=== PATIENT | female | born 1960 | race Caucasian/White ===

== ENCOUNTER → 2019-04-21 | Outpatient (CLI) | payer BC | LOC: COL.RAD 09:54 | DX: R10.9 Unspecified abdominal pain (principal) | CPT/HCPCS: Q9967 ==

== ENCOUNTER 2020-08-09 12:48 | Emergency (ER) | payer BC ==
[~2020-08-09] VITALS: Ht 172.7 cm; Wt 81.8 kg
[2020-08-09 13:12] VITALS: TEMP 98
[2020-08-09] MEDS ORDERED: PRINIVIL40 MG PO (13:37)
[2020-08-09] MEDS ORDERED: AMBIEN 10MG10 MG PO (13:38)
[2020-08-09] MEDS ORDERED: PREMARIN 1.251.25 MG PO (13:38)
[2020-08-09] MEDS ORDERED: ADDERALL20 MG PO (13:38)
[2020-08-09] MEDS ORDERED: LINZESS72 MCG PO (13:39)
[2020-08-09] MEDS ORDERED: MIRALAX510G PO (13:40)
[2020-08-09 13:54] LABS: BASO % 0.4 % (0.0-2.0); EOS # 0.1 (0.0-0.7); EOS % 0.9 % (0-4.0); GRAN # 4.5 (1.4-6.5); GRAN % 56.5 % (42.2-75.2); HEMATOCRIT 37.9 % (37.0-47.0); HEMOGLOBIN 12.9 g/dl (12.5-16.0); LYMPH # 2.7 (1.2-3.4); LYMPH % 34.4 % (20.0-51.0); MEAN CELL VOLUME 88 fl (80.0-100.0); MEAN CORPUSCULAR HEMOGLOBIN 30 pg (27.0-31.0); MEAN CORPUSCULAR HGB CONC 34 g/dl (33.0-37.0); MEAN PLATELET VOLUME 9.2 fl (7.4-10.4); MONO # 0.6 (0.1-0.6); MONO % 7.5 % (1.7-9.3); PLATELET COUNT 291 K/mm3 (130-400); RED BLOOD COUNT 4.31 M/mm3 (4.10-5.30); REDCELL DISTRIBUTION WIDTH-CV 12.6 % (11.5-14.5)
[2020-08-09 14:10] LABS: ALANINE AMINOTRANSFERASE 21 U/L (4-34); ALBUMIN 4.4 gm/dL (3.5-5.0); ALKALINE PHOSPHATASE 69 U/L (50-136); ANION GAP 7 mmol/L (7-16); AST,SGOT 25 U/L (15-37); BILIRUBIN,TOTAL 0.6 mg/dL (0.0-1.0); BLOOD UREA NITROGEN 8 mg/dL (7-17); C-REACTIVE PROTEIN < 0.5 mg/dL (0.0-0.9); CALCIUM 9.8 mg/dL (8.4-10.2); CARBON DIOXIDE 28 mmol/L (22-30); CHLORIDE 102 mmol/L (98-107); CREATININE, serum 0.65 (0.52-1.25); GLUCOSE 88 mg/dL (74-106); POTASSIUM 3.5 mmol/L (3.4-5.0); SODIUM 137 mmol/L (137-145); TOTAL PROTEIN 7.7 gm/dL (6.4-8.2)
[2020-08-09 14:15] LABS: ERYTHROCYTE SEDIMENTATION RATE 2 mm/hr (0-30)
[2020-08-09] MEDS ORDERED: TRILEPTAL 150M150 MG PO (14:20)
[2020-08-09] MEDS ORDERED: NORCO 325 MG-51 TAB PO (14:20)
[2020-08-09 14:45] VITALS: BP 157/92; PULSE 78
== END 2020-08-09 14:37 | disposition home or self-care (01) ==
LOC: COL.ER 12:48
PROVIDERS: Family Medicine
DX: G50.0 Trigeminal neuralgia (principal); I10 Essential (primary) hypertension; F90.9 Attention-deficit hyperactivity disorder, unspecified type; K58.9 Irritable bowel syndrome, unspecified; F17.200 Nicotine dependence, unspecified, uncomplicated

== ENCOUNTER → 2020-09-27 | Outpatient (CLI) | payer BC ==
[~2020-09-27] MED LIST: ADDERALL20 MG PO; AMBIEN 10MG10 MG PO; LINZESS72 MCG PO; MIRALAX510G PO; NORCO 325 MG-51 TAB PO; PREMARIN 1.251.25 MG PO; PRINIVIL40 MG PO; TRILEPTAL 150M150 MG PO
== END ==
LOC: COL.LAB 10:11
DX: G50.0 Trigeminal neuralgia (principal); R41.3 Other amnesia

== ENCOUNTER → 2020-09-27 | Outpatient (CLI) | payer BC | LOC: COL.LAB 09:11 | DX: I10 Essential (primary) hypertension (principal); R00.2 Palpitations ==

== ENCOUNTER → 2020-10-03 | Outpatient (CLI) | payer BC | LOC: COL.RAD 07:13 | DX: G50.0 Trigeminal neuralgia (principal); R41.3 Other amnesia | CPT/HCPCS: A9585 ==